=== PATIENT | female | born 1985 | race Two or more races ===

== ENCOUNTER 2024-10-25 04:21 | Emergency (ER) | payer OTHER ==
[~2024-10-25] VITALS: Ht 165.1 cm; Wt 90.9 kg
[2024-10-25 04:42] VITALS: TEMP 98.6
[2024-10-25] MEDS: LORazepam 2 MG TABLET PO ONE (07:13)
[2024-10-25] MEDS: ONDANSETRON 4 MG TABLET PO ONE (07:13)
[2024-10-25] MEDS: FAMOTIDINE 20 MG TABLET PO ONE (07:13)
[2024-10-25] MEDS: MAG HYDROX/ALUMINUM HYD/SIMETH 30 ML SUSPENSION UDCUP PO ONE (07:13)
[2024-10-25 07:51] LABS: BASOPHILS % (AUTO) 0.8 % (0.0-2.0); EOSINOPHILS % (AUTO) 3.9 % (1.0-6.0); HEMATOCRIT 31.5 % (36-46); HEMOGLOBIN 10.1 g/dL (12.0-16.0); LYMPHOCYTES # (AUTO) 0.9 K/uL (1.0-4.8); MEAN CORPUSCULAR VOLUME 75 fL (80-100); MONOCYTES # (AUTO) 0.3 K/uL (0.1-1.0); MONOCYTES % (AUTO) 4.7 % (2.0-9.0); NEUTROPHILS # (AUTO) 4.7 K/uL (1.8-7.7); NEUTROPHILS % (AUTO) 75.6 % (40.0-70.0); PLATELET COUNT (AUTO) 384 K/uL (150-450); RED BLOOD CELL COUNT(AUTO) 4.19 MIL/uL (4.00-5.20); RED CELL DISTRIBUTION WIDTH 18.6 % (11.5-14.5); WHITE BLOOD COUNT (AUTO) 6.2 K/uL (4.5-11.0)
[2024-10-25 08:02] LABS: CALCIUM, TOTAL 8.2 mg/dL (8.8-10.5); CREATININE 1.09 mg/dL (0.60-1.30); POTASSIUM 3.9 mmol/L (3.5-5.1)
[2024-10-25 08:14] LABS: ALBUMIN 2.4 g/dL (3.4-5.0); BILIRUBIN,DIRECT 0.1 mg/dL (0.00-0.20); BILIRUBIN,TOTAL 0.3 mg/dL (0.1-1.0); TOTAL PROTEIN, SERUM 6.8 g/dL (6.4-8.2)
[2024-10-25] MEDS ORDERED: FAMO20 PO (08:17)
[2024-10-25] MEDS ORDERED: OMEP20CA12 PO (08:35)
[2024-10-25] MEDS ORDERED: BUSP30TA2 PO (08:35)
[2024-10-25] MEDS ORDERED: MIRT-92 PO (08:35)
[2024-10-25] MEDS ORDERED: METF-445 PO (08:35)
[2024-10-25 08:36] VITALS: BP 135/80; PULSE 85; RESP 16; O2SAT 98
[2024-10-25 08:36] LABS: RBC MORPHOLOGY COMMENT ABNORMAL RBC MORPH
== END 2024-10-25 08:37 | disposition home or self-care (01) ==
LOC: EMS 04:28
DX: R10.13 Epigastric pain (principal); F41.9 Anxiety disorder, unspecified; Z87.19 Personal history of other diseases of the digestive system
CPT/HCPCS: 99284; 80048; 80076; 83690; 84702; 85025; 36415; Q0162